=== PATIENT | female | born 1970 | race Caucasian/White ===

== ENCOUNTER 2018-03-26 23:52 | Observation (INO) | payer OTHER ==
[2018-03-27] MEDS ORDERED: NA CHLORIDE 0.9% 1,000 ML ONE ×2 (00:27→03:18)
[2018-03-27 00:55] LABS: Absolute Lymphocytes (CBC) 0.6 K/uL (0.7-4.9); Absolute Monocytes 0.9 K/uL (0.1-1.3); Absolute Neutrophil 6.4 K/uL (1.8-8.0); Basophils % 0.3 % (0-1.3); Eosinophils % 0.4 % (0-4.4); Hematocrit 35.2 % (36.0-45.0); Lymphocytes % 7.2 % (15.3-44.8); MCH 32.4 pg (27.0-35.0); MCV 93.5 fL (80-100); MPV 8.9 fL (7.6-11.3); Monocytes % 11.1 % (3.3-12.3); RBC Red Blood Cell Count 3.77 M/uL (3.86-4.86)
[2018-03-27 01:13] LABS: Albumin 3.5 g/dL (3.4-5.0); Bilirubin Direct 0.2 mg/dL (0-0.2); Bilirubin Total 0.6 mg/dL (0.2-1.0); Potassium 3.9 mmol/L (3.5-5.1); Protein, Total 7.2 g/dL (6.4-8.2)
[2018-03-27 01:16] LABS: Urine Blood 3+ (NEG); Urine Glucose NEGATIVE (NEG); Urine Protein 2+ (NEG); Urine pH 6.5 (5.0-7.0)
[2018-03-27 01:22] LABS: Urine Bacteria LOADED /HPF (<20); Urine Culture Reflex Order NOT NEEDED
[2018-03-27] MEDS ORDERED: KETOROLAC 30 MG/ML INJ ONE (02:41)
[2018-03-27] MEDS ORDERED: CIPROFLOXACIN 400mg IV 400 MG/200 ML BAG IV ONE (02:41)
--- NOTE | 2018-03-27 03:16 | EDPHYS ---
Physician Documentation [facility] Name: Magali Amaro Age: 47 yrs Sex: Female : 1970 Arrival Date: 03/26/2018 Time: 23:53 Bed 25 Private MD: Vidal Winchester V ED Physician Sarbjit Bell HPI: 03/26 23:58 This 47 yrs old Female presents to ER via Ambulatory with complaints of cp Fever, Pain With Urination, Urinary Frequency. 23:58 The patient presents with urinary symptoms, dysuria. cp 23:58 Onset: The symptoms/episode began/occurred yesterday. Associated signs and symptoms: cp Pertinent positives: fever, nausea, abdominal and back pain, Pertinent negatives: constipation, diarrhea, active vomiting. Severity of symptoms: in the emergency department the symptoms are unchanged, despite home interventions. 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 LMP N/A - Hysterectomy bb Historical: - Allergies: 00:12 Codeine; bb 00:12 PENICILLINS; bb - Home Meds: 00:12 Wellbutrin XL 300 mg Oral Tb24 1 tab once daily [Active]; pramipexole 0.5 mg oral tab 2 bb tabs 3 times per day [Active]; Pepcid 20 mg Oral tab 1 tab once daily [Active]; Nuvigil 250 mg oral tab 1 tab once daily [Active]; vit D 5000 IU daily [Active]; Multi Vitamin oral oral [Active]; propranolol 20 mg Oral tab as needed [Active]; Tecfidera 240 mg oral cpDR 1 cap 2 times per day [Active]; Trintellix 20 mg oral tab 1 tab once daily [Active]; zolpidem 5 mg Oral tab 1 tab once daily [Active]; tazanidine 2 mg daily [Active]; hormones [Active]; Methadone 15 mg daily Oral [Active]; - PMHx: 00:12 Multiple Sclerosis; neurogenic bladder; restless leg syndrome; bb - PSHx: 00:12 Hysterectomy; ; bb - Immunization history:: Adult Immunizations up to date. - Social history:: Smoking status: Patient/guardian denies using tobacco, Patient/guardian denies using alcohol, street drugs. - Ebola Screening: : No symptoms or risks identified at this time. ROS: 00:05 Constitutional: Negative for fever, poor PO intake. cp 00:05 Eyes: Negative for injury, pain, redness, and discharge. cp 00:05 ENT: Negative for drainage from ear(s), ear pain, sore throat, difficulty swallowing, difficulty handling secretions. 00:05 Cardiovascular: Negative for chest pain, edema, palpitations. 00:05 Respiratory: Negative for cough, shortness of breath, wheezing. 00:05 Abdomen/GI: Positive for abdominal pain, nausea, Negative for vomiting, diarrhea, constipation, anorexia, black/tarry stool, rectal bleeding. 00:05 Back: Positive for flank pain, bilaterally. 00:05 : Positive for urinary symptoms, Negative for vaginal bleeding, vaginal discharge. 00:05 Skin: Negative for cellulitis, rash. 00:05 Neuro: Negative for altered mental status, headache. 00:05 All other systems are negative. Exam: 00:10 Constitutional: The patient appears in no acute distress, alert, awake, non-toxic, well cp developed, well nourished, uncomfortable. 00:10 Head/Face: Normocephalic, atraumatic. Eyes: Pupils equal round and reactive to light, cp extra-ocular motions intact. Lids and lashes normal. Conjunctiva and sclera are non-icteric and not injected. Cornea within normal limits. Periorbital areas with no swelling, redness, or edema. ENT: Nares patent. No nasal discharge, no septal abnormalities noted. Tympanic membranes are normal and external auditory canals are clear. Oropharynx with no redness, swelling, or masses, exudates, or evidence of obstruction, uvula midline. Mucous membranes moist. Neck: Trachea midline, no thyromegaly or masses palpated, and no cervical lymphadenopathy. Supple, full range of motion without nuchal rigidity, or vertebral point tenderness. No Meningismus. Chest/axilla: Normal chest wall appearance and motion. Nontender with no deformity. No lesions are appreciated. 00:10 Cardiovascular: Rate: normal, Rhythm: regular, Edema: is not appreciated, JVD: is not appreciated. 00:10 Respiratory: the patient does not display signs of respiratory distress, Respirations: normal, no use of accessory muscles, no retractions, no splinting, no tachypnea, labored breathing, is not present, Breath sounds: are clear throughout, no decreased breath sounds, no stridor, no wheezing. 00:10 Abdomen/GI: Inspection: abdomen appears normal, Bowel sounds: active, all quadrants, Palpation: soft, in all quadrants, moderate abdominal tenderness, in the posterior aspect of right lateral abdomen, anterior aspect of right lateral abdomen, posterior aspect of left lateral abdomen and anterior aspect of left lateral abdomen. 00:10 Back: CVA tenderness, is noted bilaterally. 00:10 Skin: cellulitis, is not appreciated, no rash present. 00:10 Neuro: Orientation: to person, place \T\ time. Mentation: is normal, Cerebellar function: is grossly normal, Motor: moves all fours, strength is normal, Sensation: no acute changes, Gait: is steady. Vital Signs: 00:12 BP 127 / 72; Pulse 95; Resp 16 S; Temp 99.8(O); Pulse Ox 99% on R/A; Weight 77.11 kg bb (R); Height 5 ft. 6 in. (167.64 cm) (R); Pain 8/10; 01:20 BP 109 / 74; Pulse 90; Pulse Ox 96% on R/A; rv 02:29 Pulse 92; Pulse Ox 99% on R/A; rv 03:00 BP 107 / 70; Pulse 97; Pulse Ox 97% on R/A; rv 03:56 BP 111 / 70; Pulse 95; Resp 14 S; Pulse Ox 95% on R/A; bb 00:12 Body Mass Index 27.44 (77.11 kg, 167.64 cm) bb MDM: 00:00 Patient medically screened. cp 01:00 Differential diagnosis: urinary tract infection, pyelonephritis, sepsis. cp 03:00 Data reviewed: vital signs, nurses notes, lab test result(s), EKG, radiologic studies, cp CT scan, and as a result, I will admit patient. 03:00 Counseling: I had a detailed discussion with the patient and/or guardian regarding: the historical points, exam findings, and any diagnostic results supporting the discharge/admit diagnosis, lab results, radiology results. Response to treatment: the patient's symptoms have mildly improved after treatment, Patient continues to report nausea and pain. Will admit for IV antibiotics and IV fluids. 03:04 Physician consultation: Vidal Winchester MD was called at 03:04, regarding admission, patient's condition, left message on voicemail. 03/26 23:56 Order name: Urine Microscopic Only; Complete Time: 02:04 cp 03/27 02:04 Interpretation: Normal except: UWBC 20-50; URBC 10-20; UBACT LOADED. cp 03/27 00:14 Order name: Basic Metabolic Panel cp 03/27 00:14 Order name: CBC with Diff; Complete Time: 02:04 cp 03/27 02:05 Interpretation: Normal except: RBC 3.77; HCT 35.2; TRI% 81.0; LYM% 7.2; LYMA 0.6. cp 03/27 00:14 Order name: Creatinine for Radiology; Complete Time: 02:04 cp 03/27 00:14 Order name: Hepatic Function; Complete Time: 02:04 cp 03/27 00:14 Order name: Lipase; Complete Time: 02:04 cp 03/27 00:15 Order name: Basic Metabolic Panel; Complete Time: 02:04 EDMS 03/27 00:22 Order name: Urine Dipstick--Ancillary (enter results) mw2 03/27 00:23 Order name: Urine Dipstick-Ancillary; Complete Time: 02:04 EDMS 03/27 00:45 Order name: Lactate 03/27 00:45 Order name: Procalcitonin 03/27 00:45 Order name: Blood Culture Adult (2) cp 03/27 00:45 Order name: Urine Culture 03/27 00:46 Order name: Lactate; Complete Time: 02:04 EDMS 03/26 23:56 Order name: Urine Dipstick-Ancillary (obtain specimen); Complete Time: 00:16 cp 03/27 00:46 Order name: Procalcitonin; Complete Time: 02:04 EDMS 03/27 00:46 Order name: Blood Culture EDMS 03/27 01:02 Order name: CT Stone Protocol cp 03/27 03:35 Order name: Regular EDMS 03/27 03:35 Order name: Basic Metabolic Panel EDMS 03/27 03:35 Order name: Basic Metabolic Panel EDMS 03/27 03:35 Order name: CBC with Automated Diff EDMS 03/27 03:35 Order name: CBC with Automated Diff EDMS 03/27 00:14 Order name: IV Saline Lock; Complete Time: 00:54 cp 03/27 00:14 Order name: Labs collected and sent; Complete Time: 01:15 cp Administered Medications: 00:53 Drug: NS 0.9% 1000 ml Route: IV; Rate: 1 bolus; Site: left antecubital; kr2 02:00 Follow up: IV Status: Completed infusion; IV Intake: 1000ml bb 02:43 Drug: TORadol 30 mg Route: IVP; Site: left antecubital; rv 03:36 Follow up: Response: No adverse reaction bb 02:44 Drug: Cipro 400 mg Volume: 200 ml; Route: IVPB; Infused Over: 60 mins; Site: left rv antecubital; 04:08 Follow up: IV Status: Completed infusion; IV Intake: 200ml bb 03:18 Drug: NS 0.9% 1000 ml Route: IV; Rate: 125 ml/hr; Site: left antecubital; rv 03:36 Follow up: IV Status: Infusion continued upon admission bb 03:18 Drug: Phenergan 12.5 mg Route: IVP; Site: left antecubital; rv 04:08 Follow up: Response: No adverse reaction bb 03:35 Drug: fentaNYL (PF) 25 mcg Route: IVP; Site: left antecubital; bb 04:08 Follow up: Response: No adverse reaction bb Disposition: 04:46 Co-signature as Attending Physician, Sarbjit Bell MD. rn Disposition: 03/27/18 03:15 Hospitalization ordered by Vidal Winchester for Inpatient Admission. Preliminary diagnosis is Pyelonephritis. - Bed requested for Telemetry/MedSurg (observation). - Status is Inpatient Admission. bb - Condition is Stable. - Problem is new. - Symptoms have improved. UTI on Admission? Yes Signatures: Dispatcher [employer]DA[employer] Carmela Shields RN RN kl Ballard, Brenda, RN RN Sarbjit Bradshaw MD MD rn Page, Corey, PA PA cp Alina Thrasher RN RN kr2 Rubio Arriola2 Julio Manning RN RN rv Corrections: (The following items were deleted from the chart) 00:16 10 23:56 Urine Test ordered. cp bb 03/27 02:20 02:20 Fluid Challenge ordered. cp cp 03:50 03:15 Hospitalization Ordered by Vidal Winchester MD for Inpatient Admission. Preliminary cp diagnosis is Pyelonephritis. Bed requested for Telemetry/MedSurg (Inpatient). Status is Inpatient Admission. Condition is Stable. Problem is new. Symptoms have improved. UTI on Admission? Yes. cp 03:56 03:50 03/27/2018 03:15 Hospitalization Ordered by Vidal Winchester MD for Inpatient kl Admission. Preliminary diagnosis is Pyelonephritis. Bed requested for Telemetry/MedSurg (observation). Status is Inpatient Admission. Condition is Stable. Problem is new. Symptoms have improved. UTI on Admission? Yes. cp 04:07 03:56 03/27/2018 03:15 Hospitalization Ordered by Vidal Winchester MD for Inpatient mw2 Admission. Preliminary diagnosis is Pyelonephritis. Bed requested for Telemetry/MedSurg (observation). Status is Inpatient Admission. Condition is Stable. Problem is new. Symptoms have improved. UTI on Admission? Yes. kl 04:09 04:07 03/27/2018 03:15 Hospitalization Ordered by Vidal Winchester MD for Inpatient bb Admission. Preliminary diagnosis is Pyelonephritis. Bed requested for Telemetry/MedSurg (observation). Status is Inpatient Admission. Condition is Stable. Problem is new. Symptoms have improved. UTI on Admission? Yes. mw2
--- NOTE | 2018-03-27 03:16 | ER ---
Nurse's Notes [facility] Name: Magali Amaro Age: 47 yrs Sex: Female : 1970 Arrival Date: 03/26/2018 Time: 23:53 Bed 25 Private MD: Vidal Winchester V Diagnosis: Pyelonephritis Presentation: 03/27 00:05 Presenting complaint: Patient states: she is feeling sick in general since yesterday bb with fever and body aches pt states she has a UTI she is able to test for it herself at home she has a neurogenic bladder for which she receives botox injections and knows she has a UTI when she has urinary frequency. Transition of care: patient was not received from another setting of care. Onset of symptoms was March 25, 2018. Risk Assessment: Do you want to hurt yourself or someone else? Patient reports no desire to harm self or others. Initial Sepsis Screen: Does the patient meet any 2 criteria? No. Patient's initial sepsis screen is negative. Does the patient have a suspected source of infection? No. Patient's initial sepsis screen is negative. Care prior to arrival: pt has been alternating tylenol and motrin throughout the day for fever last tylenol was at approx 1800. 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 N/A - Hysterectomy bb Historical: - Allergies: 00:12 Codeine; bb 00:12 PENICILLINS; bb - Home Meds: 00:12 Wellbutrin XL 300 mg Oral Tb24 1 tab once daily [Active]; pramipexole 0.5 mg oral tab 2 bb tabs 3 times per day [Active]; Pepcid 20 mg Oral tab 1 tab once daily [Active]; Nuvigil 250 mg oral tab 1 tab once daily [Active]; vit D 5000 IU daily [Active]; Multi Vitamin oral oral [Active]; propranolol 20 mg Oral tab as needed [Active]; Tecfidera 240 mg oral cpDR 1 cap 2 times per day [Active]; Trintellix 20 mg oral tab 1 tab once daily [Active]; zolpidem 5 mg Oral tab 1 tab once daily [Active]; tazanidine 2 mg daily [Active]; hormones [Active]; Methadone 15 mg daily Oral [Active]; - PMHx: 00:12 Multiple Sclerosis; neurogenic bladder; restless leg syndrome; bb - PSHx: 00:12 Hysterectomy; ; bb - Immunization history:: Adult Immunizations up to date. - Social history:: Smoking status: Patient/guardian denies using tobacco, Patient/guardian denies using alcohol, street drugs. - Ebola Screening: : No symptoms or risks identified at this time. Screenin:17 Abuse screen: Denies threats or abuse. Denies injuries from another. Nutritional kr2 screening: No deficits noted. Tuberculosis screening: No symptoms or risk factors identified. Fall Risk None identified. Assessment: 00:14 General: Appears in no apparent distress. comfortable, well groomed, Behavior is calm, kr2 cooperative, appropriate for age. Pain: Complains of pain in suprapubic area Pain radiates to lower back Pain currently is 6 out of 10 on a pain scale. Quality of pain is described as aching, tender, Is continuous, Alleviated by nothing. Neuro: Level of Consciousness is awake, alert, obeys commands, Oriented to person, place, time, situation. Cardiovascular: Capillary refill < 3 seconds in bilateral fingers Patient's skin is warm and dry. Respiratory: Airway is patent Respiratory effort is even, unlabored, Respiratory pattern is regular, symmetrical. GI: Abdomen is flat, non-distended, Patient currently denies nausea, vomiting. : Reports urinary frequency, since 03/25/2018 she self caths due to neurogenic bladder. EENT: Oral mucosa is moist. Derm: Skin is intact, is healthy with good turgor, Skin is pink, warm \T\ dry. Musculoskeletal: Circulation, motion, and sensation intact. 01:20 Reassessment: Patient appears in no apparent distress at this time. Patient and/or rv family updated on plan of care and expected duration. Pain level reassessed. Patient is alert, oriented x 3, equal unlabored respirations, skin warm/dry/pink. 02:13 Reassessment: Patient appears in no apparent distress at this time. Patient and/or rv family updated on plan of care and expected duration. Pain level reassessed. Patient is alert, oriented x 3, equal unlabored respirations, skin warm/dry/pink. PATIENT WAS TAKEN TO CT SCAN. 02:29 Reassessment: Patient appears in no apparent distress at this time. Patient and/or rv family updated on plan of care and expected duration. Pain level reassessed. Patient is alert, oriented x 3, equal unlabored respirations, skin warm/dry/pink. PATIENT CAME BACK FROM CT SCAN. AWAITING RESULT. 03:54 Reassessment: pt appears to be sleeping, eyes closed, resp unlabored, IV site intact, bb patent with fluids infusing, family at bedside pt awaiting room assignment. Vital Signs: 00:12 BP 127 / 72; Pulse 95; Resp 16 S; Temp 99.8(O); Pulse Ox 99% on R/A; Weight 77.11 kg bb (R); Height 5 ft. 6 in. (167.64 cm) (R); Pain 8/10; 01:20 BP 109 / 74; Pulse 90; Pulse Ox 96% on R/A; rv 02:29 Pulse 92; Pulse Ox 99% on R/A; rv 03:00 BP 107 / 70; Pulse 97; Pulse Ox 97% on R/A; rv 03:56 BP 111 / 70; Pulse 95; Resp 14 S; Pulse Ox 95% on R/A; bb 00:12 Body Mass Index 27.44 (77.11 kg, 167.64 cm) bb ED Course: 03/26 23:53 Patient arrived in ED. do 23:54 Vidal Winchester MD is Private Physician. do 23:56 Karlos Allen PA is PHCP. cp 23:56 Sarbjit Bell MD is Attending Physician. cp 03/27 00:07 Triage completed. bb 00:12 Arm band placed on Patient placed in an exam room, on a stretcher, on pulse oximetry. bb Family accompanied patient. 00:13 Alina Thrasher, RN is Primary Nurse. kr2 00:18 Patient has correct armband on for positive identification. Bed in low position. Call kr2 light in reach. Side rails up X 1. Pulse ox on. NIBP on. Door closed. Noise minimized. Verbal reassurance given. Head of bed elevated. 00:37 Missed attempt(s): 22 gauge in left forearm. Bleeding controlled, band aid applied, kr2 catheter tip intact. Missed attempt(s): 22 gauge in right antecubital area. Bleeding controlled, band aid applied, catheter tip intact. 01:00 Initial lab(s) drawn, by me, sent to lab. First set of blood cultures drawn by me, rv Second set of blood cultures drawn by me, Urine collected: straight cath specimen, becca colored. Inserted saline lock: 22 gauge in left antecubital area, using aseptic technique. Blood collected. 01:21 Awaiting lab results. rv 02:[address] via wheelchair. kw1 02:17 CT Stone Protocol In Process Unspecified. EDMS 02:18 CT completed. Patient tolerated procedure well. Patient moved back from CT. kw1 03:14 Vidal Winchester MD is Hospitalizing Provider. cp 03:55 No provider procedures requiring assistance completed. Patient admitted, IV remains in bb place. Administered Medications: 00:53 Drug: NS 0.9% 1000 ml Route: IV; Rate: 1 bolus; Site: left antecubital; kr2 02:00 Follow up: IV Status: Completed infusion; IV Intake: 1000ml bb 02:43 Drug: TORadol 30 mg Route: IVP; Site: left antecubital; rv 03:36 Follow up: Response: No adverse reaction bb 02:44 Drug: Cipro 400 mg Volume: 200 ml; Route: IVPB; Infused Over: 60 mins; Site: left rv antecubital; 04:08 Follow up: IV Status: Completed infusion; IV Intake: 200ml bb 03:18 Drug: NS 0.9% 1000 ml Route: IV; Rate: 125 ml/hr; Site: left antecubital; rv 03:36 Follow up: IV Status: Infusion continued upon admission bb 03:18 Drug: Phenergan 12.5 mg Route: IVP; Site: left antecubital; rv 04:08 Follow up: Response: No adverse reaction bb 03:35 Drug: fentaNYL (PF) 25 mcg Route: IVP; Site: left antecubital; bb 04:08 Follow up: Response: No adverse reaction bb Intake: 02:00 IV: 1000ml; Total: 1000ml. bb 04:08 IV: 200ml; Total: 1200ml. bb Outcome: 03:15 Decision to Hospitalize by Provider. cp 03:55 Instructed on the need for admit. bb 03:55 Condition: stable bb 04:08 Admitted to Med/surg accompanied by tech, family with patient, via stretcher, room 224, bb with chart, Report called to Melba ALMANZA 04:09 Patient left the ED. bb Signatures: Dispatcher [facility] Lizbeth Cook, RN RN bb Karlos Allen PA PA cp Ogletree, Danielle do Reaves, Karey RN RN kr2 Carmela Littlejohn Julio Manning, RN RN rv
[2018-03-27] MEDS ORDERED: PROMETHAZINE 25 MG/ML VIAL ONE (03:17)
[2018-03-27] MEDS ORDERED: FENTANYL CITR 100 MCG/2 ML ONE (03:27)
[2018-03-27] MEDS ORDERED: ACETAMINOPHEN 500 MG TAB PO PRN (03:28)
[2018-03-27] MEDS ORDERED: ONDANSETRON 4 MG/2 ML VIAL IV PRN (03:28)
[2018-03-27] MEDS ORDERED: FENTANYL CITR 100 MCG/2 ML IV PRN (03:35)
[2018-03-27] MEDS: NA CHLORIDE 0.9% 1,000 ML IV SCH ×3 (04:00→20:32)
[2018-03-27 04:57] VITALS: BMI 27.4
[2018-03-27] MEDS: ENOXAPARIN 40 MG/0.4 ML SQ SCH (08:42)
[2018-03-27] MEDS ORDERED: CIPROFLOXACIN 400mg IV 400 MG/200 ML BAG IV SCH (09:00)
--- NOTE | 2018-03-27 10:03 | P.HP ---
Certification for Inpatient Patient admitted to: Inpatient With expected LOS: >2 Midnights Practitioner: I am a practitioner with admitting privileges, knowledge of patient current condition, hospital course, and medical plan of care. Services: Services provided to patient in accordance with Admission requirements found in Title 42 Section 412.3 of the Code of Federal Regulations Patient History Date of Service: 03/27/18 Reason for admission: BACK PAIN, HIGH FEVER History of Present Illness: GEGE IS AN MS PATIENT WHO HAS HAD RECURRENT UTI FROM MOTILITY ISSUES. SHE HAS PAIN, HIGH FEVER AND UTI THIS TIME ALSO. Allergies codeine [Codeine] Allergy (Intermediate, Verified 12/07/15 00:26) unknown Penicillins Allergy (Intermediate, Verified 12/07/15 00:26) unknown Home Medications: Pramipexole Di-HCl [Mirapex] 1 mg PO TID 06/26/15 Armodafinil [Nuvigil] 1 tab PO DAILY PRN 12/07/15 Bupropion *Xl* [Wellbutrin XL*] 300 mg PO DAILY 03/27/18 Dimethyl Fumarate [Tecfidera] 240 mg PO DAILY 03/27/18 Famotidine [Pepcid*] 20 mg PO DAILY 03/27/18 Methadone HCl [Methadone HCl*] 15 mg PO DAILY 03/27/18 Tizanidine HCl [Zanaflex] 2 mg PO DAILY 03/27/18 Vortioxetine Hydrobromide [Trintellix] 20 mg PO DAILY 03/27/18 Zolpidem Tartrate [Ambien*] 5 mg PO DAILY PRN 03/27/18 - Past Medical/Surgical History Has patient received pneumonia vaccine in the past: No Diabetic: No -: rls -: ms -: neurogenic bladder -: hysterectomy -: c section - Family History Father -: Heart disease, Diabetes, Cancer Notes: Lungs Mother Notes: fibromyalgia, gout,Alzheimers - Social History Smoking Status: Never smoker Alcohol use: No CD- Drugs: No Caffeine use: Yes Place of Residence: Home Review of Systems 10-point ROS is otherwise unremarkable Physical Examination - Vital Signs Temperature: 98 F Blood Pressure: 98/54 Pulse: 84 Respirations: 20 Pulse Ox (%): 96 - Physical Exam General: Alert, Mild distress, Moderate distress HEENT: Atraumatic, PERRLA, Mucous membr. moist/pink, EOMI, Sclerae nonicteric Neck: Supple, 2+ carotid pulse no bruit, No LAD, Without JVD or thyroid abnormality Respiratory: Clear to auscultation bilaterally, Normal air movement Cardiovascular: Regular rate/rhythm, Normal S1 S2 Gastrointestinal: Normal bowel sounds, No tenderness Musculoskeletal: No tenderness Integumentary: No rashes Neurological: Normal gait, Normal speech, Normal strength at 5/5 x4 extr, Normal tone, Normal affect Lymphatics: No axilla or inguinal lymphadenopathy - Studies Laboratory Data (last 24 hrs) 03/27/18 00:45: Creatinine 0.70 03/27/18 00:45: WBC 7.9, Hgb 12.2, Hct 35.2 L, Plt Count 233 03/27/18 00:45: Sodium 137, Potassium 3.9, BUN 16, Creatinine 0.70, Glucose 108 H, Total Bilirubin 0.6, AST 42 H, ALT 51, Alkaline Phosphatase 94, Lipase 77 Assessment and Plan - Problems (Diagnosis) (1) Pyelonephritis Onset Date: 12/10/15 Current Visit: No Status: Acute Plan: IV CIPRO I AGREE WITH SHE IS ALLERGIC TO PCN CULTURE PENDING. MAY TAKE 3 DAYS TO DECIDE ABOUT ORAL ABX WITH CULTURE TAKING THAT LONG. (2) Multiple sclerosis Onset Date: 12/10/15 Current Visit: No Status: Chronic - Advance Directives Does patient have a Living Will: Yes Does patient have a Durable POA for Healthcare: Yes
--- NOTE | 2018-03-27 10:25 | RAD REPORT ---
EXAM DESCRIPTION: CT - Stone Protocol - 03/27/2018 4:02 am CLINICAL HISTORY: Abdominal pain, flank pain A preliminary report was provided at the time of the study and reviewed prior to final report. COMPARISON: CT December 2015 TECHNIQUE: Axial 5 mm thick images were obtained without oral or IV contrast. The [id number] span s the entirety of the system including uppermost abdomen and lung bases. All CT scans are performed using dose optimization technique as appropriate and may include automated exposure control or mA/KV adjustment according to patient size. FINDINGS: No hydronephrosis is present and no obstructing ureteral calculi. A 3 millimeter nonobstru cting calcification is present lower pole calyx on the right. Left renal capsule appears slightly catie matous with trace amount of stranding in the perinephric fat. Isodense masses and pyelonephritis are not excluded on stone protocol study. Patient has numerous phleboliths in the pelvis. At least 1 new calcification is noted on the right. No definitive ureteral calculus. Partially filled urinary bladde r shows no suspicious finding. Uterus is absent. Ovaries are absent, atrophic or obscured by non-opac ified bowel loops. No adrenal abnormality seen. Liver attenuation is decreased relative to the spleen. Liver does appear enlarged with spleen upper n ormal. Size is similar to the comparison. No focal liver lesion on noncontrast imaging. No pancreatic abnormality suspected. No gallbladder or biliary tree abnormality identified. Gallstones can be occu lt. No dilated large or small bowel loops. No acute gastric finding. Hyperdensity in the left side colon is presumed to be ingested medication. There is a generally large stool volume filling but not dilati ng the colon. Appendix is difficult to clearly define. No appendicitis findings suspected. No hernia, mass or bulky lymphadenopathy noted. Trace amount of free fluid is within physiologic limi ts. No pneumatosis, free air or focal inflammatory stranding. No significant bony abnormality. IMPRESSION: No hydronephrosis or obstructing calculus. A nonobstructing calculus is present lower po le right kidney. Multiple phleboliths in the pelvis with a least 1 new right-sided calcification. No convincing eviden ce for a distal ureteral calculus. Trace amount of stranding adjacent to the left kidney and a subtle edema appearance to the left kidne y. Finding is concerning for pyelonephritis. Isodense masses and pyelonephritis are not excluded on n oncontrast imaging. No acute GI process. Patient has a large amount of stool filling but not dilating the colon.
[2018-03-27] MEDS: CIPROFLOXACIN 400mg IV 400 MG/200 ML BAG IV SCH (13:46)
[2018-03-27 19:10] LABS: Urine Appearance CLEAR; Urine Bilirubin NEGATIVE (NEG); Urine Blood 3+ (NEG); Urine Color YELLOW; Urine Glucose NEGATIVE (NEG); Urine Protein NEGATIVE (NEG); Urine Urobilinogen 0.2 mg/dL (0.2-1.0)
[2018-03-27 19:23] LABS: Urine Microscopic Reflex ORDER UMIC
[2018-03-27 20:33] LABS: Urine Amorphous Sediment 1+ /HPF (NONE SEEN); Urine Bacteria 20-50 /HPF (<20); Urine RBC 20-50 /HPF (NONE SEEN)
[2018-03-27 20:34] LABS: Urine Culture Reflex Order NOT NEEDED
[2018-03-28] MEDS: CIPROFLOXACIN 400mg IV 400 MG/200 ML BAG IV SCH ×2 (01:49→13:11)
[2018-03-28] MEDS: NA CHLORIDE 0.9% 1,000 ML IV SCH ×3 (04:35→20:12)
[2018-03-28 05:57] LABS: Absolute Neutrophil 5.3 K/uL (1.8-8.0); Basophils % 0.5 % (0-1.3); Eosinophils % 0.8 % (0-4.4); Hematocrit 31.4 % (36.0-45.0); MCH 32.7 pg (27.0-35.0); MCV 95.3 fL (80-100); Monocytes % 13.4 % (3.3-12.3); RBC Red Blood Cell Count 3.29 M/uL (3.86-4.86)
[2018-03-28 06:18] LABS: Potassium 4.5 mmol/L (3.5-5.1)
[2018-03-28] MEDS ORDERED: ARMODAFINIL PO PRN (06:25)
[2018-03-28] MEDS ORDERED: ZOLPIDEM TARTRATE 5 MG TABLET PO PRN (06:25)
[2018-03-28] MEDS: PRAMIPEXOLE 1 MG TAB PO SCH ×3 (09:00→20:11)
[2018-03-28] MEDS: DIMETHYL FUMARATE 240 MG PO SCH (09:00)
[2018-03-28] MEDS: BUPROPION HCL XL 150 MG TAB PO SCH (09:00)
[2018-03-28] MEDS: METHADONE HCL 10 MG TAB PO SCH (09:00)
[2018-03-28] MEDS: HOME MED 1 EA UNK (Vortioxetine Hydrobromide [Trintellix] 20 MG) PO SCH (09:00)
[2018-03-28] MEDS: FAMOTIDINE 20 MG TAB PO SCH (09:00)
[2018-03-28] MEDS: ENOXAPARIN 40 MG/0.4 ML SQ SCH (10:12)
--- NOTE | 2018-03-28 12:38 | P.PN ---
Subjective Date of Service: 03/28/18 Chief Complaint: BACK PAIN, HIGH FEVER Subjective: Improving (SOMEWHAT) Review of Systems 10-point ROS is otherwise unremarkable General: Weakness, Malaise Musculoskeletal: Back Pain Physical Examination - Vital Signs Temperature: 98.6 F Blood Pressure: 97/50 Pulse: 86 Respirations: 17 Pulse Ox (%): 96 - Physical Exam General: Alert, Moderate distress HEENT: Atraumatic, PERRLA, EOMI Neck: Supple, JVD not distended Respiratory: Clear to auscultation bilaterally, Normal air movement Cardiovascular: Regular rate/rhythm, Normal S1 S2 Gastrointestinal: Normal bowel sounds, No tenderness Musculoskeletal: No tenderness Integumentary: No rashes Neurological: Normal speech, Normal tone, Normal affect Lymphatics: No axilla or inguinal lymphadenopathy - Studies Medications List Reviewed: Yes Assessment And Plan - Current Problems (Diagnosis) (1) Pyelonephritis Onset Date: 12/10/15 Current Visit: No Status: Acute Plan: IV CIPRO I AGREE WITH SHE IS ALLERGIC TO PCN CULTURE PENDING. MAY TAKE 3 DAYS TO DECIDE ABOUT ORAL ABX WITH CULTURE TAKING THAT LONG. IV ABX SHE HAS IMMUNOSUPPRESSED STATUS AND NEEDS TO CONTINUE IV ABX FOR NOW. (2) Multiple sclerosis Onset Date: 12/10/15 Current Visit: No Status: Chronic
[2018-03-29] MEDS: CIPROFLOXACIN 400mg IV 400 MG/200 ML BAG IV SCH (01:17)
[2018-03-29] MEDS: NA CHLORIDE 0.9% 1,000 ML IV SCH (03:53)
[2018-03-29] MEDS: DIMETHYL FUMARATE 240 MG PO SCH (09:00)
[2018-03-29] MEDS: METHADONE HCL 10 MG TAB PO SCH (09:00)
[2018-03-29] MEDS: HOME MED 1 EA UNK (Vortioxetine Hydrobromide [Trintellix] 20 MG) PO SCH (09:00)
[2018-03-29] MEDS: BUPROPION HCL XL 150 MG TAB PO SCH (09:00)
[2018-03-29] MEDS: FAMOTIDINE 20 MG TAB PO SCH (09:00)
[2018-03-29] MEDS: ENOXAPARIN 40 MG/0.4 ML SQ SCH (09:00)
[2018-03-29] MEDS: PRAMIPEXOLE 1 MG TAB PO SCH (09:00)
[2018-03-29 09:16] VITALS: O2SAT 96
--- NOTE | 2018-03-29 17:27 | P.DS ---
Admission Date: 03/27/18 Discharge Date: 03/29/18 Disposition: ROUTINE DISCHARGE Discharge Condition: FAIR Reason for Admission: BACK PAIN, HIGH FEVER - Problems (1) Pyelonephritis Onset Date: 12/10/15 Status: Acute (2) Multiple sclerosis Onset Date: 12/10/15 Status: Chronic Brief History of Present Illness: GEGE IS AN MS PATIENT WHO HAS HAD RECURRENT UTI FROM MOTILITY ISSUES. SHE HAS PAIN, HIGH FEVER AND UTI THIS TIME ALSO. GEGE HAS UTI WITH E COLI. THIS IS PYELONEPHRITIS. SHE WILL TAKE CEFTIN PO BID . I ASKED HER TO USE NALTREXONE IN PLACE OF METHADONE. SHE WILL TALK TO HER MS DOCTOR. Vital Signs/Physical Exam: Temp Pulse Resp BP Pulse Ox 99.5 F 89 18 112/60 96 03/29/18 08:00 03/29/18 08:00 03/29/18 08:00 03/29/18 08:00 03/29/18 08:00 Laboratory Data at Discharge: WBC 7.4 K/uL (4.3-10.9) 03/28/18 05:22 Hgb 10.8 g/dL (12.0-15.0) L 03/28/18 05:22 Hct 31.4 % (36.0-45.0) L 03/28/18 05:22 Plt Count 206 K/uL (152-406) 03/28/18 05:22 Sodium 141 mmol/L (136-145) 03/28/18 05:22 Potassium 4.5 mmol/L (3.5-5.1) 03/28/18 05:22 BUN 12 mg/dL (7-18) 03/28/18 05:22 Creatinine 0.70 mg/dL (0.55-1.3) 03/28/18 05:22 Glucose 107 mg/dL (74-106) H 03/28/18 05:22 Total Bilirubin 0.6 mg/dL (0.2-1.0) 03/27/18 00:45 AST 42 U/L (15-37) H 03/27/18 00:45 ALT 51 U/L (12-78) 03/27/18 00:45 Alkaline Phosphatase 94 U/L (45-117) 03/27/18 00:45 Lipase 77 U/L (73-393) 10/21/18 00:45 Home Medications: Pramipexole Di-HCl [Mirapex] 1 mg PO TID 06/26/15 Armodafinil [Nuvigil] 1 tab PO DAILY PRN 12/07/15 Bupropion *Xl* [Wellbutrin XL*] 300 mg PO DAILY 03/27/18 Dimethyl Fumarate [Tecfidera] 240 mg PO DAILY 03/27/18 Famotidine [Pepcid*] 20 mg PO DAILY 03/27/18 Methadone HCl [Methadone HCl*] 15 mg PO DAILY 03/27/18 Tizanidine HCl [Zanaflex] 2 mg PO DAILY 03/27/18 Vortioxetine Hydrobromide [Trintellix] 20 mg PO DAILY 03/27/18 Zolpidem Tartrate [Ambien*] 5 mg PO DAILY PRN 03/27/18 Cefuroxime [Ceftin] 250 mg PO BID #24 tab 03/29/18 New Medications: Cefuroxime [Ceftin] 250 mg PO BID #24 tab
[2018-03-29 17:36] VITALS: BP 116/58; TEMP 98.9
== END 2018-03-29 12:55 | disposition home or self-care (01) ==
LOC: ER 23:52 → ERHOLD 03-27 03:25 → 2ND 03-27 04:06
PROVIDERS: ADMIT Internal Medicine; ATTEND Internal Medicine
DX: N10 Acute pyelonephritis (principal); B96.20 Unspecified Escherichia coli [E. coli] as the cause of diseases classified elsewhere; G35 Multiple sclerosis; Z88.0 Allergy status to penicillin
CPT/HCPCS: 36415 ×2; 74176; 76377; 80048 ×2; 80076; 83605; 83690; 84145; 85025 ×2; 87040 ×2; 87077; 87086; 87088; 87186; 96361; 96365; 96375; 99285; G0378 ×2; J0744 ×5; J1650 ×2; J2405; J2550; J3010 ×2; J7030 ×8; 81003; 81015